=== PATIENT | female | born 1960 | race Caucasian/White ===

== ENCOUNTER 2017-11-03 16:33 | Emergency (ER) | payer MEDICAID ==
[~2017-11-03] VITALS: Ht 160 cm; Wt 80.0 kg
[~2017-11-03 16:33] MED LIST: ALBU1.257 NEB; ASPI-920 PO; ATOR10TA70 PO; BUTA-281; DIPH-186 PO; DOCU250C17 PO; FLUT1BLS3 INH; FURO-150 PO; GABA-532 PO; HYDR-565 PO; IPRA4AER IH; MSC15T PO; MULT-342 PO; ONDA4TAB11 PO; PANT-47 PO; POTA10CA44 PO; PRE1T PO; ROBDML PO; ROPI1TAB2 PO; SERT50TA PO; TRAZ-146 PO
[2017-11-03] MEDS ORDERED: methylPREDNISolone sod succ 125mg/2ml vial IV ONE (17:05)
[2017-11-03] MEDS ORDERED: ipratropium/albuterol 3ml nebule NEB ONE (17:30)
[2017-11-03 17:34] LABS: BASOPHILS % (AUTO) 0.1 % (0-1); EOSINOPHILS # (AUTO) 0.2 X10'3 (0-0.9); HEMATOCRIT 36.1 % (35.0-45.0); LYMPHOCYTES # (AUTO) 4.8 X10'3 (1.1-4.8); LYMPHOCYTES % (AUTO) 28.4 % (21-51); MEAN CORPUSCULAR HEMOGLOBIN 30.1 PG (27.0-31.0); MEAN CORPUSCULAR HGB CONC 33.2 % (33.0-36.5); MEAN CORPUSCULAR VOLUME 90.7 FL (78-98); MEAN PLATELET VOLUME 7.4 FL (7.4-10.4); MONOCYTES # (AUTO) 0.9 X10'3 (0-0.9); NEUTROPHILS # (AUTO) 11.1 X10'3 (1.8-7.7); NEUTROPHILS % (AUTO) 65.5 % (42-75); PLATELET COUNT 148 X10'3 (140-440); RED BLOOD COUNT 3.98 X10'6 (4.20-5.60)
[2017-11-03] MEDS ORDERED: normal saline 1000ML IV soln IVB ONE (17:45)
[2017-11-03 17:58] LABS: ALANINE AMINOTRANSFERASE 21 U/L (12-78); ALBUMIN 3.2 G/DL (3.4-5.0); ALBUMIN/GLOBULIN RATIO 0.9 (1.1-1.5); ALKALINE PHOSPHATASE 80 IU/L (46-116); ANION GAP 8 (8-16); ASPARTATE AMINO TRANSFERASE 18 U/L (10-37); BILIRUBIN,TOTAL 0.5 MG/DL (0.1-1.0); BLOOD UREA NITROGEN 14 MG/DL (7-18); BUN/CREATININE RATIO 15.9 (6.6-38.0); CALCIUM 9.1 MG/DL (8.5-10.1); CHLORIDE 104 MMOL/L (99-107); CREATININE 0.88 MG/DL (0.40-0.90); GLUCOSE 133 MG/DL (70-104); MAGNESIUM 1.9 MG/DL (1.5-2.4); POTASSIUM 3.4 MMOL/L (3.5-5.1); SODIUM 143 MMOL/L (135-145); TOTAL CARBON DIOXIDE 31.4 MMOL/L (24-32); TOTAL PROTEIN 6.7 G/DL (6.4-8.2); eGFR 66 ML/MIN
[2017-11-03] MEDS ORDERED: ondansetron/PF 4mg/2ml inj IV ONE (18:35)
[2017-11-03] MEDS ORDERED: meclizine 12.5mg tablet PO ONE (18:35)
[2017-11-03] MEDS ORDERED: MORPHINE 2MG in 2ml NS syringe IV STA (20:01)
[2017-11-03] MEDS ORDERED: levoFLOXACIN-Levaquin 500mg/D5 100 ML IV ONE (20:05)
[2017-11-03] MEDS ORDERED: PRED10TA23 PO (20:35)
[2017-11-03] MEDS ORDERED: GUAI600T45 PO (20:35)
[2017-11-03] MEDS ORDERED: LEVO500T2 PO (20:35)
[2017-11-03 22:37] VITALS: BP 143/97
== END 2017-11-03 22:42 | disposition home or self-care (01) ==
LOC: ER 16:34
DX: J44.1 Chronic obstructive pulmonary disease with (acute) exacerbation (principal); J20.9 Acute bronchitis, unspecified; E87.2 Acidosis; D72.829 Elevated white blood cell count, unspecified; G43.909 Migraine, unspecified, not intractable, without status migrainosus; E78.00 Pure hypercholesterolemia, unspecified; K21.9 Gastro-esophageal reflux disease without esophagitis; E03.9 Hypothyroidism, unspecified; M06.9 Rheumatoid arthritis, unspecified; Z86.718 Personal history of other venous thrombosis and embolism; Z88.5 Allergy status to narcotic agent; Z88.2 Allergy status to sulfonamides; Z79.82 Long term (current) use of aspirin; Z79.899 Other long term (current) drug therapy
CPT/HCPCS: 36415; 71045; 74018; 80053; 83605; 83735; 83880; 84145; 84484; 85025; 87040; 93005; 94640; 96361; 96365; 96366; 96375; 99285; J1956; J2405; J2930; J7030; J8597

== ENCOUNTER 2018-02-25 10:28 | Observation (INO) | payer MEDICAID ==
[~2018-02-25] VITALS: Ht 172.7 cm; Wt 70.0 kg
[~2018-02-25 10:28] MED LIST changes: +GUAI600T45 PO
[2018-02-25] MEDS ORDERED: CefTRIAXone 2gm/D5W 50ml 50 ML IV ONE (10:45)
[2018-02-25] MEDS ORDERED: normal saline 1000ML IV soln IV ONE (10:45)
[2018-02-25 10:57] LABS: BASOPHILS % (AUTO) 0.6 % (0-1); EOSINOPHILS # (AUTO) 0.1 X10'3 (0-0.9); EOSINOPHILS % (AUTO) 1.7 % (0-6); HEMATOCRIT 32.3 % (35.0-45.0); HEMOGLOBIN 10.9 g/dl (12.0-16.0); LYMPHOCYTES # (AUTO) 2.2 X10'3 (1.1-4.8); LYMPHOCYTES % (AUTO) 38.1 % (21-51); MEAN CORPUSCULAR HEMOGLOBIN 30.5 PG (27.0-31.0); MEAN CORPUSCULAR HGB CONC 33.6 % (33.0-36.5); MONOCYTES # (AUTO) 0.5 X10'3 (0-0.9); NEUTROPHILS # (AUTO) 2.9 X10'3 (1.8-7.7); NEUTROPHILS % (AUTO) 51.6 % (42-75); PLATELET COUNT 154 X10'3 (140-440); RED BLOOD COUNT 3.55 X10'6 (4.20-5.60); RED CELL DISTRIBUTION WIDTH 14.1 % (11.5-14.5); WHITE BLOOD COUNT 5.7 X10'3 (4.5-11.0)
[2018-02-25 11:08] LABS: INR 1.1 INR; PARTIAL THROMBOPLASTIN TIME 25 SECONDS (22-32); PROTHROMBIN TIME 10.9 SECONDS (9.0-12.0)
[2018-02-25 11:12] LABS: ALANINE AMINOTRANSFERASE 12 U/L (12-78); ALBUMIN 2.5 G/DL (3.4-5.0); ALBUMIN/GLOBULIN RATIO 0.9 (1.1-1.5); ALKALINE PHOSPHATASE 71 IU/L (46-116); ANION GAP 0 (8-16); ASPARTATE AMINO TRANSFERASE 13 U/L (10-37); BILIRUBIN,TOTAL 0.2 MG/DL (0.1-1.0); BLOOD UREA NITROGEN 12 MG/DL (7-18); BUN/CREATININE RATIO 13.8 (6.6-38.0); CALCIUM 8.3 MG/DL (8.5-10.1); CHLORIDE 108 MMOL/L (99-107); CREATININE 0.87 MG/DL (0.40-0.90); GLUCOSE 98 MG/DL (70-104); MAGNESIUM 1.6 MG/DL (1.5-2.4); SODIUM 143 MMOL/L (135-145); TOTAL CARBON DIOXIDE 35.1 MMOL/L (24-32); TOTAL PROTEIN 5.2 G/DL (6.4-8.2); eGFR 67 ML/MIN
[2018-02-25 11:34] LABS: CLARITY,URINE Clear (Clear); COLOR,URINE Yellow (Yellow); GLUCOSE, URINE Negative (Neg); KETONES,URINE Negative (Neg); LEUKOCYTE ESTERASE ,URINE Small (Neg); NITRITES, URINE Negative (Neg); OCCULT BLOOD,URINE Negative (Neg); PROTEIN,URINE Negative (Neg)
[2018-02-25 11:35] LABS: UA COLLECTION TYPE FOLEY CATH
[2018-02-25 11:43] LABS: BACTERIA,URINE FEW /HPF (Neg); RBC,URINE 0-2 /HPF (0-2); SQUAMOUS EPITHELIAL CELL,UR FEW /LPF (FEW)
[2018-02-25 11:44] LABS: HYALINE CASTS 0-3 /LPF (NEGATIVE); WBC CLUMPS,URINE FEW /HPF (NEGATIVE)
[2018-02-25] MEDS ORDERED: magnesium hydroxide 30ml (MOM) UD suspension PO PRN (12:10)
[2018-02-25] MEDS ORDERED: acetaminophen 325mg tablet PO PRN ×2 (12:10)
[2018-02-25] MEDS ORDERED: ondansetron/PF 4mg/2ml inj IV PRN (12:10)
[2018-02-25] MEDS ORDERED: potassium Cl 40MEQ/NS 500ml 500 ML IV PRN ×2 (12:10)
[2018-02-25] MEDS ORDERED: potassium Cl 20 mEq SR tablet PO PRN ×2 (12:10)
[2018-02-25] MEDS ORDERED: mag hydrox/Alum hydrox/simeth 30ml oral suspension PO PRN (12:10)
[2018-02-25] MEDS ORDERED: magnesium 1gm/100ml D5W IVPB 100 ML IV PRN (12:10)
[2018-02-25] MEDS ORDERED: magnesium Cl slow-release 64mg tablet PO PRN (12:10)
[2018-02-25] MEDS ORDERED: magnesium 4gm in 100ml NS 100 ML IV PRN (12:10)
[2018-02-25] MEDS ORDERED: LACT10SO PO (12:19)
[2018-02-25] MEDS ORDERED: TIZA4TAB11 PO (12:19)
[2018-02-25] MEDS ORDERED: ALBU8.5H8 IH (12:19)
[2018-02-25] MEDS ORDERED: GABA-532 PO (12:19)
[2018-02-25] MEDS ORDERED: ONDA8TAB12 PO (12:19)
[2018-02-25] MEDS ORDERED: IPRA4AER IH (12:19)
[2018-02-25] MEDS ORDERED: DOXY100C2 PO (12:19)
[2018-02-25] MEDS ORDERED: FLUT1BLS3 (12:19)
[2018-02-25] MEDS ORDERED: SERT25TA PO (12:19)
[2018-02-25] MEDS: predniSONE 1 mg tablet PO SCH (14:50)
[2018-02-25] MEDS ORDERED: butalbital/acetaminophen/caffeine (Fioricet) tablet PO PRN (14:55)
[2018-02-25] MEDS ORDERED: ipratropium/albuterol 3ml nebule NEB PRN (14:55)
[2018-02-25] MEDS: albuterol 2.5 MG/3 ML nebule NEB SCH ×2 (15:00→21:02)
[2018-02-25] MEDS: neomy sulf/polymyx B sulf/HC otic soln 10ml LEFT EAR SCH ×3 (15:03→21:29)
[2018-02-25] MEDS: normal saline 1000ml 1,000 ML IV SCH ×2 (15:03→22:09)
[2018-02-25] MEDS: HYDROcodone/acetaminophen 10/325mg tab PO PRN (15:03)
[2018-02-25] MEDS ORDERED: iohexol 300mg/ml 100ml inj. ONE (15:19)
[2018-02-25] MEDS ORDERED: gabapentin 300mg capsule PO SCH (15:20)
[2018-02-25] MEDS: morphine ER 15mg tablet PO SCH (15:59)
[2018-02-25 17:45] VITALS: BP 158/61
[2018-02-25 19:00] VITALS: BP 134/79
[2018-02-25] MEDS: tizanidine 4mg tablet PO SCH (19:50)
[2018-02-25] MEDS ORDERED: traZODone 50mg tablet PO SCH (21:00)
[2018-02-25] MEDS ORDERED: atorvastatin 10mg tablet PO SCH (21:00)
[2018-02-25] MEDS ORDERED: ROPINIRole 1mg tablet PO SCH (21:00)
[2018-02-25] MEDS: budesonide 0.5mg/2ml UD nebule IH SCH (21:02)
[2018-02-25] MEDS: gabapentin 300mg capsule PO SCH (21:27)
[2018-02-26] VITALS: BP 98/61
[2018-02-26] MEDS: morphine ER 15mg tablet PO SCH ×2 (00:13→07:38)
[2018-02-26] MEDS: HYDROcodone/acetaminophen 10/325mg tab PO PRN ×2 (01:55→12:54)
[2018-02-26] MEDS: albuterol 2.5 MG/3 ML nebule NEB SCH ×3 (02:41→14:43)
[2018-02-26] MEDS: normal saline 1000ml 1,000 ML IV SCH (04:48)
[2018-02-26 07:00] VITALS: BP 147/74
[2018-02-26] MEDS ORDERED: pantoprazole 40mg Tablet.DR PO SCH (07:30)
[2018-02-26] MEDS: gabapentin 300mg capsule PO SCH ×2 (07:42→12:50)
[2018-02-26] MEDS: neomy sulf/polymyx B sulf/HC otic soln 10ml LEFT EAR SCH ×2 (07:42→13:02)
[2018-02-26] MEDS: predniSONE 1 mg tablet PO SCH (07:43)
[2018-02-26] MEDS: tizanidine 4mg tablet PO SCH ×2 (07:44)
[2018-02-26] MEDS: nystatin 15 GM powder TP SCH ×2 (07:45→13:02)
[2018-02-26] MEDS ORDERED: K and/or MAG REPLACEMENT MC SCH (08:00)
[2018-02-26] MEDS ORDERED: aspirin 81mg tab.chew PO SCH (08:00)
[2018-02-26] MEDS ORDERED: potassium chloride 10mEq ER tablet PO SCH (08:00)
[2018-02-26] MEDS ORDERED: sertraline 50mg tablet PO SCH (08:00)
[2018-02-26] MEDS ORDERED: enoxaparin 40mg/0.4ml syringe SUBCUT SCH (08:00)
[2018-02-26] MEDS ORDERED: potassium chloride 10mEq CAPSULE.SA PO SCH (08:00)
[2018-02-26 08:11] LABS: BASOPHILS % (AUTO) 0.5 % (0-1); EOSINOPHILS # (AUTO) 0.1 X10'3 (0-0.9); HEMATOCRIT 32.3 % (35.0-45.0); HEMOGLOBIN 10.8 g/dl (12.0-16.0); LYMPHOCYTES % (AUTO) 32.6 % (21-51); MEAN CORPUSCULAR HEMOGLOBIN 30.6 PG (27.0-31.0); MEAN CORPUSCULAR HGB CONC 33.5 % (33.0-36.5); MEAN CORPUSCULAR VOLUME 91.3 FL (78-98); MEAN PLATELET VOLUME 7.6 FL (7.4-10.4); MONOCYTES # (AUTO) 0.4 X10'3 (0-0.9); MONOCYTES % (AUTO) 6.8 % (2-12); NEUTROPHILS # (AUTO) 3.6 X10'3 (1.8-7.7); NEUTROPHILS % (AUTO) 59.1 % (42-75); PLATELET COUNT 154 X10'3 (140-440); RED BLOOD COUNT 3.54 X10'6 (4.20-5.60); RED CELL DISTRIBUTION WIDTH 14.1 % (11.5-14.5); WHITE BLOOD COUNT 6.1 X10'3 (4.5-11.0)
[2018-02-26 08:35] LABS: ALANINE AMINOTRANSFERASE 13 U/L (12-78); ALBUMIN 2.7 G/DL (3.4-5.0); ALKALINE PHOSPHATASE 70 IU/L (46-116); ANION GAP 6 (8-16); ASPARTATE AMINO TRANSFERASE 11 U/L (10-37); BILIRUBIN,TOTAL 0.2 MG/DL (0.1-1.0); BLOOD UREA NITROGEN 10 MG/DL (7-18); BUN/CREATININE RATIO 13.3 (6.6-38.0); CHLORIDE 108 MMOL/L (99-107); CREATININE 0.75 MG/DL (0.40-0.90); GLUCOSE 79 MG/DL (70-104); MAGNESIUM 1.4 MG/DL (1.5-2.4); POTASSIUM 3.5 MMOL/L (3.5-5.1); SODIUM 145 MMOL/L (135-145); TOTAL CARBON DIOXIDE 31.3 MMOL/L (24-32); TOTAL PROTEIN 5.4 G/DL (6.4-8.2); eGFR 79 ML/MIN
[2018-02-26] MEDS: budesonide 0.5mg/2ml UD nebule IH SCH (09:28)
[2018-02-26 12:21] VITALS: BP 122/62
[2018-02-26] MEDS ORDERED: NEOM10SO7 LEFT EAR (12:31)
== END 2018-02-26 15:10 | disposition home or self-care (01) ==
LOC: ER 10:28 → ED HOLD 12:09 → EDBEDREQTM 14:08 → EDBEDREQSVC 14:08 → EDBEDREQ 14:08 → SUR 3N 17:06
PROVIDERS: ADMIT Family Medicine; ATTEND Family Medicine
DX: G93.40 Encephalopathy, unspecified (principal); I95.9 Hypotension, unspecified; H60.92 Unspecified otitis externa, left ear; J44.9 Chronic obstructive pulmonary disease, unspecified; E78.5 Hyperlipidemia, unspecified; M06.9 Rheumatoid arthritis, unspecified; M45.9 Ankylosing spondylitis of unspecified sites in spine; M79.7 Fibromyalgia; K21.9 Gastro-esophageal reflux disease without esophagitis; F41.1 Generalized anxiety disorder; F41.0 Panic disorder [episodic paroxysmal anxiety]; F32.9 Major depressive disorder, single episode, unspecified; G89.29 Other chronic pain; E89.0 Postprocedural hypothyroidism; G62.9 Polyneuropathy, unspecified; E78.00 Pure hypercholesterolemia, unspecified; G43.909 Migraine, unspecified, not intractable, without status migrainosus; M19.90 Unspecified osteoarthritis, unspecified site; Z90.710 Acquired absence of both cervix and uterus; Z99.3 Dependence on wheelchair
CPT/HCPCS: 36415; 70470; 71045; 80053; 81001; 83605; 83735; 84145; 84443; 84484; 85025; 85610; 85730; 87040; 87088; 93005; 94640; 94760; 96361; 96365; 96372; 96375; 99285; C1758; G0378; J0696; J1650; J2405; J7030; J7512; J7626; Q9967

== ENCOUNTER 2018-03-24 09:45 | Inpatient (IN) | payer MEDICAID ==
[~2018-03-24] VITALS: Ht 160 cm; Wt 74.2 kg
[~2018-03-24 09:45] MED LIST changes: +ALBU8.5H8 IH; -DIPH-186 PO; -DOCU250C17 PO; +FLO0.1T PO; +FLUT1BLS3; -GUAI600T45 PO; +LACT10SO PO; +NEOM10SO7 LEFT EAR; -ONDA4TAB11 PO; +ONDA8TAB12 PO; -ROBDML PO; +SERT25TA PO; -SERT50TA PO; +TIZA4TAB11 PO; -TRAZ-146 PO; +TRAZ-219 PO
[2018-03-24] MEDS ORDERED: ipratropium/albuterol 3ml nebule NEB ONE (10:00)
[2018-03-24 10:21] LABS: ABG BASE EXCESS -0.6 mmol/L (-2.0-3.0); ABG HCO3 25.3 mmol/L (22.0-26.0); ABG OXYGEN SATURATION 91.9 % (95-98); ABG PCO2 (T) 46.4 mmHg (32.0-45.0); ABG PH (T) 7.354 (7.350-7.450); ABG PO2 (T) 61.7 mmHg (83-108); ALLEN'S TEST Positive; FCOHb 0.8 % (0.5-1.5); FLOW 4 L/min; FO2Hb 91.2 % (94-100); TOTAL HEMOGLOBIN 12.3 G/dl (12.0-16.0)
[2018-03-24] MEDS ORDERED: CefTRIAXone 2gm/D5W 50ml 50 ML IV ONE (10:25)
[2018-03-24] MEDS ORDERED: normal saline 1000ML IV soln IV ONE (10:25)
[2018-03-24 10:34] LABS: BASOPHILS % (AUTO) 0.2 % (0-1); EOSINOPHILS % (AUTO) 0.5 % (0-6); HEMATOCRIT 39.4 % (35.0-45.0); HEMOGLOBIN 12.9 g/dl (12.0-16.0); LYMPHOCYTES # (AUTO) 0.9 X10'3 (1.1-4.8); LYMPHOCYTES % (AUTO) 14.3 % (21-51); MEAN CORPUSCULAR HEMOGLOBIN 30.2 PG (27.0-31.0); MEAN CORPUSCULAR HGB CONC 32.6 % (33.0-36.5); MEAN CORPUSCULAR VOLUME 92.7 FL (78-98); MONOCYTES # (AUTO) 0.3 X10'3 (0-0.9); MONOCYTES % (AUTO) 4.9 % (2-12); NEUTROPHILS # (AUTO) 4.8 X10'3 (1.8-7.7); NEUTROPHILS % (AUTO) 80.1 % (42-75); PLATELET COUNT 145 X10'3 (140-440); RED BLOOD COUNT 4.25 X10'6 (4.20-5.60); RED CELL DISTRIBUTION WIDTH 13.3 % (11.5-14.5); WHITE BLOOD COUNT 5.9 X10'3 (4.5-11.0)
[2018-03-24 10:46] LABS: PARTIAL THROMBOPLASTIN TIME 22 SECONDS (22-32)
[2018-03-24 10:52] LABS: ALANINE AMINOTRANSFERASE 15 U/L (12-78); ALBUMIN 3.2 G/DL (3.4-5.0); ALBUMIN/GLOBULIN RATIO 0.9 (1.1-1.5); ALKALINE PHOSPHATASE 88 IU/L (46-116); ANION GAP 9 (8-16); ASPARTATE AMINO TRANSFERASE 16 U/L (10-37); BILIRUBIN,TOTAL 0.3 MG/DL (0.1-1.0); BLOOD UREA NITROGEN 14 MG/DL (7-18); BUN/CREATININE RATIO 17.9 (6.6-38.0); CALCIUM 8.9 MG/DL (8.5-10.1); CHLORIDE 104 MMOL/L (99-107); CREATININE 0.78 MG/DL (0.40-0.90); GLUCOSE 144 MG/DL (70-104); POTASSIUM 3.2 MMOL/L (3.5-5.1); SODIUM 144 MMOL/L (135-145); TOTAL CARBON DIOXIDE 31.5 MMOL/L (24-32); TOTAL PROTEIN 6.7 G/DL (6.4-8.2); eGFR 76 ML/MIN
[2018-03-24 11:00] LABS: CLARITY,URINE CLOUDY (Clear); COLOR,URINE YELLOW (Yellow); GLUCOSE, URINE NEGATIVE (Neg); KETONES,URINE NEGATIVE (Neg); LEUKOCYTE ESTERASE ,URINE NEGATIVE (Neg); NITRITES, URINE POSITIVE (Neg); OCCULT BLOOD,URINE LARGE (Neg); PH,URINE 6.5 (4.8-8.0); PROTEIN,URINE 30 mg/dl (Neg); UROBILINOGEN,URINE 0.2 E.U/dL (0.2-1.0)
[2018-03-24 11:01] LABS: MAGNESIUM 1.3 MG/DL (1.5-2.4)
[2018-03-24 11:05] LABS: UA COLLECTION TYPE FOLEY CATH
[2018-03-24 11:06] LABS: BACTERIA,URINE 4+ /HPF (Neg); MUCUS STRANDS FEW /LPF (Neg); RBC,URINE 20-50 /HPF (0-2); SQUAMOUS EPITHELIAL CELL,UR FEW /LPF (FEW); WBC,URINE 0-4 /HPF (0-4)
[2018-03-24] MEDS ORDERED: CYAN-19 PO (11:08)
[2018-03-24] MEDS ORDERED: ASCO500C15 PO (11:08)
[2018-03-24] MEDS ORDERED: VITE1000C PO (11:08)
[2018-03-24] MEDS ORDERED: CHOL100046 PO (11:08)
[2018-03-24 11:11] LABS: TOTAL CELLS COUNTED 100
[2018-03-24 11:15] LABS: PLATELET ESTIMATE NORMAL
[2018-03-24 11:16] LABS: POLYCHROMASIA FEW
[2018-03-24] MEDS ORDERED: morphine ER 15mg tablet PO ONE (11:20)
[2018-03-24] MEDS ORDERED: normal saline 1000ML IV soln IVB ONE (11:25)
[2018-03-24] MEDS ORDERED: iohexol 350MG/ML 100ml bottle IV ONE (11:30)
[2018-03-24 11:36] LABS: ABG BASE EXCESS -0.5 mmol/L (-2.0-3.0); ABG OXYGEN SATURATION 93.7 % (95-98); ABG PCO2 (T) 50.8 mmHg (32.0-45.0); ABG PH (T) 7.327 (7.350-7.450); ABG PO2 (T) 75.1 mmHg (83-108); ALLEN'S TEST Positive; FCOHb 0.8 % (0.5-1.5); FLOW 12 L/min; FMetHb 0.3 % (0.3-1.12); FO2Hb 92.7 % (94-100); TOTAL HEMOGLOBIN 11.9 G/dl (12.0-16.0)
[2018-03-24] MEDS ORDERED: iohexol 350 MG/ML 50ML vial IV ONE (11:51)
[2018-03-24] MEDS ORDERED: potassium Cl 20 mEq SR tablet PO PRN ×2 (13:10)
[2018-03-24] MEDS ORDERED: potassium Cl 40MEQ/NS 500ml 500 ML IV PRN ×2 (13:10)
[2018-03-24] MEDS ORDERED: magnesium 1gm/100ml D5W IVPB 100 ML IV PRN (13:10)
[2018-03-24] MEDS ORDERED: acetaminophen 325mg tablet PO PRN (13:10)
[2018-03-24] MEDS ORDERED: mag hydrox/Alum hydrox/simeth 30ml oral suspension PO PRN (13:10)
[2018-03-24] MEDS ORDERED: vancomycin/NS 1 GM ADD-VANTAGE 250 ML IV ONE (13:10)
[2018-03-24] MEDS ORDERED: docusate sod 100mg capsule PO PRN (13:10)
[2018-03-24] MEDS ORDERED: magnesium 4gm in 100ml NS 100 ML IV PRN (13:10)
[2018-03-24] MEDS ORDERED: ondansetron/PF 4mg/2ml inj IV PRN (13:10)
[2018-03-24] MEDS ORDERED: methylPREDNISolone sod succ 125mg/2ml vial IV SCH (13:35)
[2018-03-24] MEDS: cyclobenzaprine 10mg tablet PO SCH ×2 (14:44→20:05)
[2018-03-24] MEDS: normal saline 1000ml 1,000 ML IV SCH ×2 (15:47→23:09)
[2018-03-24 16:45] VITALS: BP 166/75
[2018-03-24] MEDS: morphine ER 15mg tablet PO SCH (16:56)
[2018-03-24 19:00] VITALS: BP 143/86
[2018-03-24] MEDS: cefepime 2g/NS 100ml ADVANTAGE 100 ML IV SCH (20:04)
[2018-03-24] MEDS: traZODone 50mg tablet PO SCH (20:04)
[2018-03-24] MEDS: atorvastatin 10mg tablet PO SCH (20:05)
[2018-03-24] MEDS: ROPINIRole 1mg tablet PO SCH (20:05)
[2018-03-24] MEDS: gabapentin 300mg capsule PO SCH (20:06)
[2018-03-24 23:00] VITALS: BP 149/81
[2018-03-25] MEDS: methylPREDNISolone sod succ/PF 40mg inj. IV SCH ×3 (00:41→15:30)
[2018-03-25] MEDS: morphine ER 15mg tablet PO SCH ×3 (00:41→15:23)
[2018-03-25 03:00] VITALS: BP 147/74
[2018-03-25] MEDS: vancomycin/NS 1 GM ADD-VANTAGE 250 ML IV SCH ×2 (04:03→15:30)
[2018-03-25 06:00] VITALS: BP 147/72
[2018-03-25 06:00] LABS: BASOPHILS % (AUTO) 0 % (0-1); EOSINOPHILS % (AUTO) 0 % (0-6); HEMATOCRIT 39.1 % (35.0-45.0); HEMOGLOBIN 13.1 g/dl (12.0-16.0); LYMPHOCYTES # (AUTO) 1.1 X10'3 (1.1-4.8); LYMPHOCYTES % (AUTO) 6.4 % (21-51); MEAN CORPUSCULAR HGB CONC 33.5 % (33.0-36.5); MEAN CORPUSCULAR VOLUME 92.6 FL (78-98); MEAN PLATELET VOLUME 8.2 FL (7.4-10.4); MONOCYTES # (AUTO) 0.7 X10'3 (0-0.9); MONOCYTES % (AUTO) 4.3 % (2-12); NEUTROPHILS # (AUTO) 15.2 X10'3 (1.8-7.7); NEUTROPHILS % (AUTO) 89.3 % (42-75); PLATELET COUNT 137 X10'3 (140-440); RED BLOOD COUNT 4.23 X10'6 (4.20-5.60); RED CELL DISTRIBUTION WIDTH 13.1 % (11.5-14.5)
[2018-03-25 06:25] LABS: ANISOCYTOSIS 1+; PLATELET ESTIMATE NORMAL; POLYCHROMASIA FEW; TOTAL CELLS COUNTED 100
[2018-03-25 06:48] LABS: ALANINE AMINOTRANSFERASE 17 U/L (12-78); ALBUMIN 2.8 G/DL (3.4-5.0); ALBUMIN/GLOBULIN RATIO 0.7 (1.1-1.5); ALKALINE PHOSPHATASE 82 IU/L (46-116); ANION GAP 10 (8-16); ASPARTATE AMINO TRANSFERASE 16 U/L (10-37); BILIRUBIN,TOTAL 0.4 MG/DL (0.1-1.0); BLOOD UREA NITROGEN 11 MG/DL (7-18); BUN/CREATININE RATIO 15.9 (6.6-38.0); CALCIUM 9.4 MG/DL (8.5-10.1); CHLORIDE 106 MMOL/L (99-107); CREATININE 0.69 MG/DL (0.40-0.90); GLUCOSE 119 MG/DL (70-104); MAGNESIUM 1.7 MG/DL (1.5-2.4); POTASSIUM 3.9 MMOL/L (3.5-5.1); SODIUM 142 MMOL/L (135-145); TOTAL CARBON DIOXIDE 26.5 MMOL/L (24-32); TOTAL PROTEIN 6.6 G/DL (6.4-8.2); eGFR 87 ML/MIN
[2018-03-25] MEDS: K and/or MAG REPLACEMENT MC SCH (07:05)
[2018-03-25] MEDS: furosemide 20MG tablet PO SCH (07:19)
[2018-03-25] MEDS: ascorbic acid 500mg tablet PO SCH (07:21)
[2018-03-25] MEDS: cyclobenzaprine 10mg tablet PO SCH ×3 (07:21→21:22)
[2018-03-25] MEDS: cefepime 2g/NS 100ml ADVANTAGE 100 ML IV SCH ×2 (07:21→20:06)
[2018-03-25] MEDS: enoxaparin 40mg/0.4ml syringe SQ SCH (07:21)
[2018-03-25] MEDS: aspirin 81mg tablet.DR PO SCH (07:21)
[2018-03-25] MEDS: cyanocobalamin 500mcg tablet PO SCH (07:22)
[2018-03-25] MEDS: pantoprazole 40mg Tablet.DR PO SCH (07:22)
[2018-03-25] MEDS: vitamin D (cholecalciferol) 1,000 unit tablet PO SCH (07:22)
[2018-03-25] MEDS: gabapentin 300mg capsule PO SCH ×3 (07:22→21:22)
[2018-03-25] MEDS: sertraline 50mg tablet PO SCH (07:22)
[2018-03-25] MEDS: normal saline 1000ml 1,000 ML IV SCH ×2 (09:09→15:30)
[2018-03-25 11:00] VITALS: BP 130/59
[2018-03-25] MEDS ORDERED: morphine 2 MG/ML inj. syringe IV PRN (11:25)
[2018-03-25] MEDS: ipratropium/albuterol 3ml nebule NEB PRN (11:25)
[2018-03-25] MEDS: morphine 4 MG/ML inj SYRINge IV PRN ×2 (12:00→20:06)
[2018-03-25] MEDS: nystatin 15 GM powder TP SCH ×2 (12:46→21:22)
[2018-03-25 15:00] VITALS: BP 126/51
[2018-03-25 19:00] VITALS: BP 134/65
[2018-03-25] MEDS: lactobacillus rhamnosus 10,000 MMU CELLS/CAPSULE PO SCH (20:06)
[2018-03-25] MEDS: ROPINIRole 1mg tablet PO SCH (21:21)
[2018-03-25] MEDS: traZODone 50mg tablet PO SCH (21:21)
[2018-03-25] MEDS: atorvastatin 10mg tablet PO SCH (21:22)
[2018-03-25 23:00] VITALS: BP 163/89
[2018-03-26] VITALS (7 sets, daily range): BP systolic 132–186; BP diastolic 82–93
[2018-03-26] MEDS ORDERED: VANCOMYCIN LEVEL IV ONE (02:30)
[2018-03-26 03:00] LABS: ALANINE AMINOTRANSFERASE 15 U/L (12-78); ALBUMIN 2.6 G/DL (3.4-5.0); ALBUMIN/GLOBULIN RATIO 0.7 (1.1-1.5); ALKALINE PHOSPHATASE 66 IU/L (46-116); ANION GAP 4 (8-16); ASPARTATE AMINO TRANSFERASE 11 U/L (10-37); BILIRUBIN,TOTAL 0.2 MG/DL (0.1-1.0); BLOOD UREA NITROGEN 13 MG/DL (7-18); BUN/CREATININE RATIO 17.8 (6.6-38.0); CALCIUM 8.9 MG/DL (8.5-10.1); CHLORIDE 108 MMOL/L (99-107); CHOL/HDL RATIO 2.7 (0.00-4.99); CHOLESTEROL 189 MG/DL (0-200); CREATININE 0.73 MG/DL (0.40-0.90); GLUCOSE 127 MG/DL (70-104); HDL CHOLESTEROL 70 MG/DL (35-60); LDL CHOLESTEROL 95 MG/DL (50-100); MAGNESIUM 1.8 MG/DL (1.5-2.4); POTASSIUM 4.2 MMOL/L (3.5-5.1); SODIUM 142 MMOL/L (135-145); TOTAL CARBON DIOXIDE 29.8 MMOL/L (24-32); TOTAL PROTEIN 6.1 G/DL (6.4-8.2); TRIGLYCERIDES 63 MG/DL (20-135); VANCOMYCIN,TROUGH 12.4 UG/ML (6.0-14.0); eGFR 82 ML/MIN
[2018-03-26] MEDS: vancomycin/NS 1 GM ADD-VANTAGE 250 ML IV SCH (03:09)
[2018-03-26 05:02] LABS: BASOPHILS % (AUTO) 0.1 % (0-1); EOSINOPHILS % (AUTO) 0 % (0-6); HEMOGLOBIN 10.6 g/dl (12.0-16.0); LYMPHOCYTES # (AUTO) 0.7 X10'3 (1.1-4.8); LYMPHOCYTES % (AUTO) 6.6 % (21-51); MEAN CORPUSCULAR HEMOGLOBIN 30.6 PG (27.0-31.0); MEAN CORPUSCULAR VOLUME 92.8 FL (78-98); MEAN PLATELET VOLUME 8.1 FL (7.4-10.4); MONOCYTES # (AUTO) 0.3 X10'3 (0-0.9); MONOCYTES % (AUTO) 2.8 % (2-12); NEUTROPHILS # (AUTO) 10.4 X10'3 (1.8-7.7); NEUTROPHILS % (AUTO) 90.5 % (42-75); PLATELET COUNT 150 X10'3 (140-440); RED BLOOD COUNT 3.44 X10'6 (4.20-5.60); WHITE BLOOD COUNT 11.4 X10'3 (4.5-11.0)
[2018-03-26] MEDS: methylPREDNISolone sod succ/PF 40mg inj. IV SCH ×3 (07:28→17:30)
[2018-03-26] MEDS: enoxaparin 40mg/0.4ml syringe SQ SCH (07:29)
[2018-03-26] MEDS: cyclobenzaprine 10mg tablet PO SCH ×3 (07:29→20:37)
[2018-03-26] MEDS: vitamin D (cholecalciferol) 1,000 unit tablet PO SCH (07:29)
[2018-03-26] MEDS: aspirin 81mg tablet.DR PO SCH (07:29)
[2018-03-26] MEDS: pantoprazole 40mg Tablet.DR PO SCH (07:29)
[2018-03-26] MEDS: ascorbic acid 500mg tablet PO SCH (07:29)
[2018-03-26] MEDS: cyanocobalamin 500mcg tablet PO SCH (07:29)
[2018-03-26] MEDS: cefepime 2g/NS 100ml ADVANTAGE 100 ML IV SCH ×2 (07:29→19:36)
[2018-03-26] MEDS: gabapentin 300mg capsule PO SCH ×3 (07:29→20:37)
[2018-03-26] MEDS: lactobacillus rhamnosus 10,000 MMU CELLS/CAPSULE PO SCH ×2 (07:29→19:35)
[2018-03-26] MEDS: sertraline 50mg tablet PO SCH (07:29)
[2018-03-26] MEDS: normal saline 1000ml 1,000 ML IV SCH ×2 (07:30→15:09)
[2018-03-26] MEDS: morphine ER 15mg tablet PO SCH ×3 (07:30→17:30)
[2018-03-26] MEDS: nystatin 15 GM powder TP SCH ×3 (07:31→20:38)
[2018-03-26] MEDS: furosemide 20MG tablet PO SCH (08:00)
[2018-03-26] MEDS: K and/or MAG REPLACEMENT MC SCH (08:00)
[2018-03-26] MEDS: morphine 4 MG/ML inj SYRINge IV PRN ×2 (09:08→15:05)
[2018-03-26] MEDS ORDERED: lisinopril 5mg tablet PO ONE (12:50)
[2018-03-26] MEDS ORDERED: furosemide 20 MG/2 ML vial IV ONE (12:50)
[2018-03-26] MEDS: vancomycin inj 1,250 MG in normal saline 250ml IV soln 250 ML IV SCH (15:13)
[2018-03-26] MEDS: atorvastatin 10mg tablet PO SCH (20:37)
[2018-03-26] MEDS: traZODone 50mg tablet PO SCH (20:38)
[2018-03-26] MEDS: ROPINIRole 1mg tablet PO SCH (20:38)
[2018-03-27] MEDS: morphine ER 15mg tablet PO SCH ×4 (00:01→23:59)
[2018-03-27] MEDS: methylPREDNISolone sod succ/PF 40mg inj. IV SCH ×4 (00:01→23:59)
[2018-03-27 03:00] VITALS: BP 180/90
[2018-03-27] MEDS: vancomycin inj 1,250 MG in normal saline 250ml IV soln 250 ML IV SCH ×2 (03:15→14:53)
[2018-03-27] MEDS: normal saline 1000ml 1,000 ML IV SCH ×3 (03:15→15:37)
[2018-03-27] MEDS: morphine 4 MG/ML inj SYRINge IV PRN ×2 (03:28→13:23)
[2018-03-27 06:30] LABS: BASOPHILS % (AUTO) 0.1 % (0-1); EOSINOPHILS % (AUTO) 0.1 % (0-6); HEMATOCRIT 32.3 % (35.0-45.0); HEMOGLOBIN 11.1 g/dl (12.0-16.0); LYMPHOCYTES # (AUTO) 1.2 X10'3 (1.1-4.8); LYMPHOCYTES % (AUTO) 12.8 % (21-51); MEAN CORPUSCULAR HEMOGLOBIN 31.3 PG (27.0-31.0); MEAN CORPUSCULAR HGB CONC 34.2 % (33.0-36.5); MEAN CORPUSCULAR VOLUME 91.3 FL (78-98); MEAN PLATELET VOLUME 8.3 FL (7.4-10.4); MONOCYTES # (AUTO) 0.3 X10'3 (0-0.9); NEUTROPHILS # (AUTO) 7.8 X10'3 (1.8-7.7); PLATELET COUNT 176 X10'3 (140-440); RED BLOOD COUNT 3.54 X10'6 (4.20-5.60); RED CELL DISTRIBUTION WIDTH 12.7 % (11.5-14.5); WHITE BLOOD COUNT 9.3 X10'3 (4.5-11.0)
[2018-03-27 06:47] LABS: ALANINE AMINOTRANSFERASE 16 U/L (12-78); ALBUMIN 2.6 G/DL (3.4-5.0); ALBUMIN/GLOBULIN RATIO 0.7 (1.1-1.5); ALKALINE PHOSPHATASE 59 IU/L (46-116); ANION GAP 6 (8-16); ASPARTATE AMINO TRANSFERASE 10 U/L (10-37); BILIRUBIN,TOTAL 0.3 MG/DL (0.1-1.0); BLOOD UREA NITROGEN 17 MG/DL (7-18); BUN/CREATININE RATIO 24.6 (6.6-38.0); CALCIUM 8.7 MG/DL (8.5-10.1); CHLORIDE 105 MMOL/L (99-107); CREATININE 0.69 MG/DL (0.40-0.90); GLUCOSE 117 MG/DL (70-104); MAGNESIUM 1.8 MG/DL (1.5-2.4); POTASSIUM 3.6 MMOL/L (3.5-5.1); SODIUM 142 MMOL/L (135-145); TOTAL CARBON DIOXIDE 30.6 MMOL/L (24-32); TOTAL PROTEIN 6.2 G/DL (6.4-8.2); eGFR 87 ML/MIN
[2018-03-27 06:58] VITALS: BP 153/90
[2018-03-27] MEDS: cefepime 2g/NS 100ml ADVANTAGE 100 ML IV SCH ×2 (07:37→20:02)
[2018-03-27] MEDS: pantoprazole 40mg Tablet.DR PO SCH (07:38)
[2018-03-27] MEDS: lactobacillus rhamnosus 10,000 MMU CELLS/CAPSULE PO SCH ×2 (07:38→20:03)
[2018-03-27] MEDS: cyclobenzaprine 10mg tablet PO SCH ×3 (07:39→20:03)
[2018-03-27] MEDS: sertraline 50mg tablet PO SCH (07:39)
[2018-03-27] MEDS: aspirin 81mg tablet.DR PO SCH (07:39)
[2018-03-27] MEDS: vitamin D (cholecalciferol) 1,000 unit tablet PO SCH (07:40)
[2018-03-27] MEDS: furosemide 20MG tablet PO SCH (07:40)
[2018-03-27] MEDS: ascorbic acid 500mg tablet PO SCH (07:40)
[2018-03-27] MEDS: cyanocobalamin 500mcg tablet PO SCH (07:41)
[2018-03-27] MEDS: gabapentin 300mg capsule PO SCH ×3 (07:41→20:03)
[2018-03-27] MEDS: nystatin 15 GM powder TP SCH ×3 (07:42→20:04)
[2018-03-27] MEDS: enoxaparin 40mg/0.4ml syringe SQ SCH (07:42)
[2018-03-27] MEDS: K and/or MAG REPLACEMENT MC SCH (08:00)
[2018-03-27 11:00] VITALS: BP 184/92
[2018-03-27 15:00] VITALS: BP 153/99
[2018-03-27 19:00] VITALS: BP 148/95
[2018-03-27] MEDS: ROPINIRole 1mg tablet PO SCH (20:02)
[2018-03-27] MEDS: traZODone 50mg tablet PO SCH (20:03)
[2018-03-27] MEDS: atorvastatin 10mg tablet PO SCH (20:03)
[2018-03-27] MEDS: ipratropium/albuterol 3ml nebule NEB PRN (20:52)
[2018-03-27 23:00] VITALS: BP 153/84
[2018-03-28] MEDS ORDERED: VANCOMYCIN LEVEL IV NR (02:30)
[2018-03-28] MEDS: vancomycin inj 1,250 MG in normal saline 250ml IV soln 250 ML IV SCH (02:33)
[2018-03-28] MEDS: morphine 4 MG/ML inj SYRINge IV PRN ×3 (02:44→22:06)
[2018-03-28 02:56] LABS: BASOPHILS % (AUTO) 0.4 % (0-1); EOSINOPHILS % (AUTO) 0.6 % (0-6); HEMOGLOBIN 11.3 g/dl (12.0-16.0); LYMPHOCYTES % (AUTO) 13.6 % (21-51); MEAN CORPUSCULAR HEMOGLOBIN 30.7 PG (27.0-31.0); MEAN CORPUSCULAR HGB CONC 33.4 % (33.0-36.5); MEAN CORPUSCULAR VOLUME 91.9 FL (78-98); MEAN PLATELET VOLUME 7.8 FL (7.4-10.4); MONOCYTES # (AUTO) 0.3 X10'3 (0-0.9); MONOCYTES % (AUTO) 4.6 % (2-12); NEUTROPHILS # (AUTO) 5.8 X10'3 (1.8-7.7); NEUTROPHILS % (AUTO) 80.8 % (42-75); PLATELET COUNT 194 X10'3 (140-440); RED CELL DISTRIBUTION WIDTH 13.4 % (11.5-14.5); WHITE BLOOD COUNT 7.2 X10'3 (4.5-11.0)
[2018-03-28 03:00] VITALS: BP 149/79
[2018-03-28 03:11] LABS: eGFR 82 ML/MIN
[2018-03-28 03:12] LABS: ALANINE AMINOTRANSFERASE 11 U/L (12-78); ALBUMIN 2.5 G/DL (3.4-5.0); ALBUMIN/GLOBULIN RATIO 0.7 (1.1-1.5); ALKALINE PHOSPHATASE 56 IU/L (46-116); ANION GAP 3 (8-16); ASPARTATE AMINO TRANSFERASE 10 U/L (10-37); BILIRUBIN,TOTAL 0.2 MG/DL (0.1-1.0); BLOOD UREA NITROGEN 21 MG/DL (7-18); BUN/CREATININE RATIO 28.8 (6.6-38.0); CALCIUM 8.4 MG/DL (8.5-10.1); CHLORIDE 106 MMOL/L (99-107); CREATININE 0.73 MG/DL (0.40-0.90); GLUCOSE 114 MG/DL (70-104); MAGNESIUM 1.8 MG/DL (1.5-2.4); POTASSIUM 3.8 MMOL/L (3.5-5.1); SODIUM 141 MMOL/L (135-145); TOTAL CARBON DIOXIDE 32.3 MMOL/L (24-32); TOTAL PROTEIN 5.9 G/DL (6.4-8.2)
[2018-03-28 03:21] LABS: VANCOMYCIN,TROUGH 20.3 UG/ML (6.0-14.0)
[2018-03-28] MEDS: normal saline 1000ml 1,000 ML IV SCH ×3 (07:09→18:13)
[2018-03-28] MEDS: K and/or MAG REPLACEMENT MC SCH (08:00)
[2018-03-28 08:22] VITALS: BP 161/98
[2018-03-28] MEDS: cefepime 2g/NS 100ml ADVANTAGE 100 ML IV SCH ×2 (08:26→22:00)
[2018-03-28] MEDS: ascorbic acid 500mg tablet PO SCH (08:27)
[2018-03-28] MEDS: aspirin 81mg tablet.DR PO SCH (08:27)
[2018-03-28] MEDS: pantoprazole 40mg Tablet.DR PO SCH (08:27)
[2018-03-28] MEDS: cyclobenzaprine 10mg tablet PO SCH ×3 (08:27→21:57)
[2018-03-28] MEDS: morphine ER 15mg tablet PO SCH ×2 (08:27→15:26)
[2018-03-28] MEDS: methylPREDNISolone sod succ/PF 40mg inj. IV SCH ×2 (08:27→15:27)
[2018-03-28] MEDS: furosemide 20MG tablet PO SCH (08:27)
[2018-03-28] MEDS: cyanocobalamin 500mcg tablet PO SCH (08:27)
[2018-03-28] MEDS: lactobacillus rhamnosus 10,000 MMU CELLS/CAPSULE PO SCH ×2 (08:27→21:56)
[2018-03-28] MEDS: gabapentin 300mg capsule PO SCH ×3 (08:28→21:56)
[2018-03-28] MEDS: sertraline 50mg tablet PO SCH (08:28)
[2018-03-28] MEDS: vitamin D (cholecalciferol) 1,000 unit tablet PO SCH (08:28)
[2018-03-28] MEDS: enoxaparin 40mg/0.4ml syringe SQ SCH (08:28)
[2018-03-28] MEDS: nystatin 15 GM powder TP SCH ×3 (08:29→21:00)
[2018-03-28 11:00] VITALS: BP 157/95
[2018-03-28] MEDS: vancomycin/NS 1 GM ADD-VANTAGE 250 ML IV SCH (15:26)
[2018-03-28] MEDS: lactulose 20gm/30ml cup PO PRN (15:38)
[2018-03-28 16:43] VITALS: BP 150/79
[2018-03-28 19:00] VITALS: BP 160/91
[2018-03-28] MEDS: ROPINIRole 1mg tablet PO SCH (21:55)
[2018-03-28] MEDS: atorvastatin 10mg tablet PO SCH (21:57)
[2018-03-28] MEDS: traZODone 50mg tablet PO SCH (22:00)
[2018-03-28 23:00] VITALS: BP 161/81
[2018-03-29] MEDS: morphine ER 15mg tablet PO SCH ×3 (00:21→16:17)
[2018-03-29 03:00] VITALS: BP 167/84
[2018-03-29] MEDS: vancomycin/NS 1 GM ADD-VANTAGE 250 ML IV SCH ×2 (03:47→15:17)
[2018-03-29] MEDS: morphine 4 MG/ML inj SYRINge IV PRN (05:05)
[2018-03-29 06:00] VITALS: BP 144/100
[2018-03-29 06:10] LABS: BASOPHILS % (AUTO) 0.1 % (0-1); EOSINOPHILS # (AUTO) 0.1 X10'3 (0-0.9); EOSINOPHILS % (AUTO) 0.8 % (0-6); HEMATOCRIT 35.6 % (35.0-45.0); HEMOGLOBIN 11.9 g/dl (12.0-16.0); LYMPHOCYTES # (AUTO) 2.8 X10'3 (1.1-4.8); LYMPHOCYTES % (AUTO) 32.5 % (21-51); MEAN CORPUSCULAR HEMOGLOBIN 30.6 PG (27.0-31.0); MEAN CORPUSCULAR HGB CONC 33.3 % (33.0-36.5); MEAN CORPUSCULAR VOLUME 91.8 FL (78-98); MEAN PLATELET VOLUME 7.7 FL (7.4-10.4); MONOCYTES # (AUTO) 0.7 X10'3 (0-0.9); MONOCYTES % (AUTO) 8.2 % (2-12); NEUTROPHILS # (AUTO) 5.1 X10'3 (1.8-7.7); NEUTROPHILS % (AUTO) 58.4 % (42-75); PLATELET COUNT 219 X10'3 (140-440); RED BLOOD COUNT 3.88 X10'6 (4.20-5.60); RED CELL DISTRIBUTION WIDTH 13.5 % (11.5-14.5); WHITE BLOOD COUNT 8.7 X10'3 (4.5-11.0)
[2018-03-29 06:15] LABS: ALANINE AMINOTRANSFERASE 15 U/L (12-78); ALBUMIN 2.4 G/DL (3.4-5.0); ALBUMIN/GLOBULIN RATIO 0.8 (1.1-1.5); ALKALINE PHOSPHATASE 51 IU/L (46-116); ANION GAP 4 (8-16); ASPARTATE AMINO TRANSFERASE 14 U/L (10-37); BILIRUBIN,TOTAL 0.2 MG/DL (0.1-1.0); BLOOD UREA NITROGEN 19 MG/DL (7-18); BUN/CREATININE RATIO 29.7 (6.6-38.0); CALCIUM 8.1 MG/DL (8.5-10.1); CHLORIDE 106 MMOL/L (99-107); CREATININE 0.64 MG/DL (0.40-0.90); GLUCOSE 83 MG/DL (70-104); MAGNESIUM 1.9 MG/DL (1.5-2.4); POTASSIUM 3.2 MMOL/L (3.5-5.1); SODIUM 142 MMOL/L (135-145); TOTAL CARBON DIOXIDE 32.3 MMOL/L (24-32); TOTAL PROTEIN 5.6 G/DL (6.4-8.2); eGFR > 90 ML/MIN
[2018-03-29] MEDS ORDERED: lisinopril 2.5mg tablet PO SCH (08:00)
[2018-03-29] MEDS: K and/or MAG REPLACEMENT MC SCH (08:00)
[2018-03-29] MEDS: pantoprazole 40mg Tablet.DR PO SCH (08:08)
[2018-03-29] MEDS: lactobacillus rhamnosus 10,000 MMU CELLS/CAPSULE PO SCH ×2 (08:08→19:21)
[2018-03-29] MEDS: cefepime 2g/NS 100ml ADVANTAGE 100 ML IV SCH (08:08)
[2018-03-29] MEDS: aspirin 81mg tablet.DR PO SCH (08:09)
[2018-03-29] MEDS: sertraline 50mg tablet PO SCH (08:10)
[2018-03-29] MEDS: vitamin D (cholecalciferol) 1,000 unit tablet PO SCH (08:11)
[2018-03-29] MEDS: gabapentin 300mg capsule PO SCH ×3 (08:11→21:03)
[2018-03-29] MEDS: predniSONE 20 mg tablet PO SCH (08:11)
[2018-03-29] MEDS: normal saline 1000ml 1,000 ML IV SCH (08:11)
[2018-03-29] MEDS: ascorbic acid 500mg tablet PO SCH (08:12)
[2018-03-29] MEDS: cyclobenzaprine 10mg tablet PO SCH ×3 (08:12→21:04)
[2018-03-29] MEDS: furosemide 20MG tablet PO SCH (08:12)
[2018-03-29] MEDS: cyanocobalamin 500mcg tablet PO SCH (08:12)
[2018-03-29] MEDS: enoxaparin 40mg/0.4ml syringe SQ SCH (08:13)
[2018-03-29] MEDS: nystatin 15 GM powder TP SCH ×3 (08:14→21:04)
[2018-03-29] MEDS ORDERED: potassium Cl 40MEQ/NS 500ml 500 ML IV PRN ×2 (10:50)
[2018-03-29] MEDS ORDERED: potassium Cl 20 mEq SR tablet PO PRN (10:50)
[2018-03-29 11:00] VITALS: BP 142/100
[2018-03-29] MEDS: HYDROcodone/acetaminophen 5mg/325mg tablet PO PRN ×2 (11:10→19:22)
[2018-03-29] MEDS: potassium Cl 20 mEq SR tablet PO PRN ×2 (11:11→15:16)
[2018-03-29] MEDS: lactulose 20gm/30ml cup PO PRN (11:12)
[2018-03-29] MEDS ORDERED: vancomycin/NS 1 GM ADD-VANTAGE 250 ML IV SCH (14:00)
[2018-03-29 15:00] VITALS: BP 130/94
[2018-03-29 19:00] VITALS: BP 148/85
[2018-03-29] MEDS: lisinopril 10 MG tablet PO SCH (19:22)
[2018-03-29] MEDS: ROPINIRole 1mg tablet PO SCH (21:02)
[2018-03-29] MEDS: atorvastatin 10mg tablet PO SCH (21:02)
[2018-03-29] MEDS: traZODone 50mg tablet PO SCH (21:03)
[2018-03-29 23:00] VITALS: BP 181/104
[2018-03-30] VITALS (7 sets, daily range): BP systolic 107–178; BP diastolic 50–119
[2018-03-30] MEDS ORDERED: magnesium citrate 296ml oral solution PO ONE (00:25)
[2018-03-30] MEDS: morphine ER 15mg tablet PO SCH ×4 (00:36→23:47)
[2018-03-30] MEDS ORDERED: VANCOMYCIN LEVEL IV ONE ×3 (02:30→13:30)
[2018-03-30] MEDS: HYDROcodone/acetaminophen 5mg/325mg tablet PO PRN ×4 (02:33→22:41)
[2018-03-30] MEDS: vancomycin/NS 1 GM ADD-VANTAGE 250 ML IV SCH ×2 (02:44→16:31)
[2018-03-30 03:09] LABS: MAGNESIUM 2.1 MG/DL (1.5-2.4); VANCOMYCIN,TROUGH 17.7 UG/ML (6.0-14.0)
[2018-03-30] MEDS: ascorbic acid 500mg tablet PO SCH (07:16)
[2018-03-30] MEDS: pantoprazole 40mg Tablet.DR PO SCH (07:16)
[2018-03-30] MEDS: lisinopril 10 MG tablet PO SCH ×2 (07:16→20:52)
[2018-03-30] MEDS: sertraline 50mg tablet PO SCH (07:17)
[2018-03-30] MEDS: aspirin 81mg tablet.DR PO SCH (07:17)
[2018-03-30] MEDS: furosemide 20MG tablet PO SCH (07:21)
[2018-03-30] MEDS: gabapentin 300mg capsule PO SCH ×3 (07:21→20:53)
[2018-03-30] MEDS: lactobacillus rhamnosus 10,000 MMU CELLS/CAPSULE PO SCH ×2 (07:21→20:52)
[2018-03-30] MEDS: cyclobenzaprine 10mg tablet PO SCH ×3 (07:21→20:53)
[2018-03-30] MEDS: cyanocobalamin 500mcg tablet PO SCH (07:22)
[2018-03-30] MEDS: vitamin D (cholecalciferol) 1,000 unit tablet PO SCH (07:22)
[2018-03-30] MEDS: nystatin 15 GM powder TP SCH ×3 (07:23→20:53)
[2018-03-30] MEDS: enoxaparin 40mg/0.4ml syringe SQ SCH (07:25)
[2018-03-30] MEDS: K and/or MAG REPLACEMENT MC SCH (08:00)
[2018-03-30 09:20] LABS: ALBUMIN 2.9 G/DL (3.4-5.0); ANION GAP 9 (8-16); BLOOD UREA NITROGEN 17 MG/DL (7-18); BUN/CREATININE RATIO 24.3 (6.6-38.0); CALCIUM 8.7 MG/DL (8.5-10.1); CHLORIDE 106 MMOL/L (99-107); GLUCOSE 79 MG/DL (70-104); SODIUM 143 MMOL/L (135-145); TOTAL CARBON DIOXIDE 28.3 MMOL/L (24-32); eGFR 86 ML/MIN
[2018-03-30] MEDS: predniSONE 20 mg tablet PO SCH (09:50)
[2018-03-30] MEDS ORDERED: cloNIDine 0.1 mg tablet PO SCH (20:00)
[2018-03-30] MEDS: traZODone 50mg tablet PO SCH (20:53)
[2018-03-30] MEDS: ROPINIRole 1mg tablet PO SCH (20:53)
[2018-03-30] MEDS: atorvastatin 10mg tablet PO SCH (20:53)
[2018-03-31] MEDS: vancomycin/NS 1 GM ADD-VANTAGE 250 ML IV SCH ×2 (02:39→14:46)
[2018-03-31 03:00] VITALS: BP 152/82
[2018-03-31] MEDS: HYDROcodone/acetaminophen 5mg/325mg tablet PO PRN ×2 (05:01→11:05)
[2018-03-31 05:36] LABS: BASOPHILS % (AUTO) 0.2 % (0-1); EOSINOPHILS # (AUTO) 0.4 X10'3 (0-0.9); EOSINOPHILS % (AUTO) 3.5 % (0-6); HEMATOCRIT 38.7 % (35.0-45.0); HEMOGLOBIN 12.8 g/dl (12.0-16.0); LYMPHOCYTES # (AUTO) 3.7 X10'3 (1.1-4.8); LYMPHOCYTES % (AUTO) 35.6 % (21-51); MEAN CORPUSCULAR HEMOGLOBIN 30.1 PG (27.0-31.0); MEAN CORPUSCULAR HGB CONC 32.9 % (33.0-36.5); MEAN CORPUSCULAR VOLUME 91.4 FL (78-98); MEAN PLATELET VOLUME 7.4 FL (7.4-10.4); MONOCYTES # (AUTO) 0.8 X10'3 (0-0.9); MONOCYTES % (AUTO) 7.3 % (2-12); NEUTROPHILS # (AUTO) 5.6 X10'3 (1.8-7.7); NEUTROPHILS % (AUTO) 53.4 % (42-75); PLATELET COUNT 263 X10'3 (140-440); RED BLOOD COUNT 4.23 X10'6 (4.20-5.60); RED CELL DISTRIBUTION WIDTH 13.7 % (11.5-14.5); WHITE BLOOD COUNT 10.4 X10'3 (4.5-11.0)
[2018-03-31 05:54] LABS: ALBUMIN 2.6 G/DL (3.4-5.0); ANION GAP 3 (8-16); BLOOD UREA NITROGEN 25 MG/DL (7-18); BUN/CREATININE RATIO 32.5 (6.6-38.0); CALCIUM 8.5 MG/DL (8.5-10.1); CHLORIDE 103 MMOL/L (99-107); CREATININE 0.77 MG/DL (0.40-0.90); GLUCOSE 89 MG/DL (70-104); MAGNESIUM 2.1 MG/DL (1.5-2.4); POTASSIUM 3.8 MMOL/L (3.5-5.1); SODIUM 143 MMOL/L (135-145); TOTAL CARBON DIOXIDE 36.7 MMOL/L (24-32); eGFR 77 ML/MIN
[2018-03-31 06:00] VITALS: BP 122/73
[2018-03-31] MEDS: lisinopril 10 MG tablet PO SCH (08:00)
[2018-03-31] MEDS: K and/or MAG REPLACEMENT MC SCH (08:00)
[2018-03-31] MEDS: furosemide 20MG tablet PO SCH (08:00)
[2018-03-31] MEDS ORDERED: LISI10TA4 PO (08:13)
[2018-03-31] MEDS ORDERED: LINE600T36 PO (08:13)
[2018-03-31] MEDS ORDERED: PRED20TA PO (08:13)
[2018-03-31] MEDS: enoxaparin 40mg/0.4ml syringe SQ SCH (08:49)
[2018-03-31] MEDS: lactobacillus rhamnosus 10,000 MMU CELLS/CAPSULE PO SCH (08:51)
[2018-03-31] MEDS: vitamin D (cholecalciferol) 1,000 unit tablet PO SCH (08:51)
[2018-03-31] MEDS: cyanocobalamin 500mcg tablet PO SCH (08:51)
[2018-03-31] MEDS: sertraline 50mg tablet PO SCH (08:51)
[2018-03-31] MEDS: predniSONE 20 mg tablet PO SCH (08:52)
[2018-03-31] MEDS: morphine ER 15mg tablet PO SCH (08:52)
[2018-03-31] MEDS: ascorbic acid 500mg tablet PO SCH (08:52)
[2018-03-31] MEDS: aspirin 81mg tablet.DR PO SCH (08:52)
[2018-03-31] MEDS: gabapentin 300mg capsule PO SCH ×2 (08:52→13:02)
[2018-03-31] MEDS: pantoprazole 40mg Tablet.DR PO SCH (08:52)
[2018-03-31] MEDS: cyclobenzaprine 10mg tablet PO SCH ×2 (08:52→13:02)
[2018-03-31] MEDS: nystatin 15 GM powder TP SCH ×2 (08:57→13:02)
[2018-03-31 11:00] VITALS: BP 114/62
== END 2018-03-31 15:29 | disposition home health service (06) | DRG 720 ==
LOC: ER 09:45 → ED HOLD 13:09 → EDBEDREQ 15:00 → PCU 3S 16:10
PROVIDERS: ADMIT Family Medicine; ATTEND Internal Medicine
PROC: 5A09357 Assistance with Respiratory Ventilation, Less than 24 Consecutive Hours, Continuous Positive Airway Pressure (ICD-10-PCS; principal; 2018-03-24)
PROC: B32T1ZZ Computerized Tomography (CT Scan) of Left Pulmonary Artery using Low Osmolar Contrast (ICD-10-PCS; 2018-03-24)
PROC: B3201ZZ Computerized Tomography (CT Scan) of Thoracic Aorta using Low Osmolar Contrast (ICD-10-PCS; 2018-03-24)
PROC: B32S1ZZ Computerized Tomography (CT Scan) of Right Pulmonary Artery using Low Osmolar Contrast (ICD-10-PCS; 2018-03-24)
DX: A41.1 Sepsis due to other specified staphylococcus (principal); J96.21 Acute and chronic respiratory failure with hypoxia; I50.33 Acute on chronic diastolic (congestive) heart failure; J18.9 Pneumonia, unspecified organism; I11.0 Hypertensive heart disease with heart failure; E11.40 Type 2 diabetes mellitus with diabetic neuropathy, unspecified; G83.9 Paralytic syndrome, unspecified; J44.0 Chronic obstructive pulmonary disease with (acute) lower respiratory infection; F32.9 Major depressive disorder, single episode, unspecified; E03.9 Hypothyroidism, unspecified; E78.00 Pure hypercholesterolemia, unspecified; G43.909 Migraine, unspecified, not intractable, without status migrainosus; G89.29 Other chronic pain; M19.90 Unspecified osteoarthritis, unspecified site; M54.9 Dorsalgia, unspecified; E78.5 Hyperlipidemia, unspecified; F41.0 Panic disorder [episodic paroxysmal anxiety]; G47.00 Insomnia, unspecified; K21.9 Gastro-esophageal reflux disease without esophagitis; M06.9 Rheumatoid arthritis, unspecified; M85.80 Other specified disorders of bone density and structure, unspecified site; N39.0 Urinary tract infection, site not specified; Z16.23 Resistance to quinolones and fluoroquinolones; B95.7 Other staphylococcus as the cause of diseases classified elsewhere; Z79.82 Long term (current) use of aspirin; Z79.899 Other long term (current) drug therapy; Z80.1 Family history of malignant neoplasm of trachea, bronchus and lung; Z80.3 Family history of malignant neoplasm of breast; Z82.49 Family history of ischemic heart disease and other diseases of the circulatory system; Z82.5 Family history of asthma and other chronic lower respiratory diseases; Z83.3 Family history of diabetes mellitus; Z87.891 Personal history of nicotine dependence; Z90.710 Acquired absence of both cervix and uterus; Z98.1 Arthrodesis status; Z88.6 Allergy status to analgesic agent; Z88.2 Allergy status to sulfonamides; Z99.3 Dependence on wheelchair; Z86.718 Personal history of other venous thrombosis and embolism; Z56.0 Unemployment, unspecified; Z82.0 Family history of epilepsy and other diseases of the nervous system
CPT/HCPCS: 36415; 36600; 71045; 71275; 80048; 80053; 80061; 80202; 81001; 82803; 83605; 83735; 83880; 84145; 84484; 85018; 85025; 85610; 85730; 87040; 87070; 87077; 87088; 87186; 92616; 93005; 94640; 94660; 94760; 96365; 99291; A4315; C1758; J0692; J0696; J1650; J1940; J2270; J2920; J2930; J3370; J3420; J7030; J7512; Q9967